=== PATIENT | male | born 2000 ===

== ENCOUNTER 2025-04-15 17:52 | Inpatient (IN) | payer OTHER ==
[~2025-04-15] VITALS: Ht 180.3 cm; Wt 76.1 kg
[2025-04-15 20:31] VITALS: BP 115/67
[2025-04-15 21:05] VITALS: BP 115/67
[2025-04-15] MEDS ORDERED: Ondansetron 4 MG SoluTab MM PRN (21:25)
[2025-04-15] MEDS ORDERED: Polyethylene Glycol 3350 17 gm PO PRN (21:30)
[2025-04-15] MEDS ORDERED: FLU VACC TS2025-26(6MOS UP)/PF 45 MCG/0.5 ML SYRINGE IM SCH (21:30)
[2025-04-15] MEDS ORDERED: Aluminum Hydroxide 320MG/5ML 473 ML PO PRN (21:35)
--- NOTE | 2025-04-15 22:33 | NUR ---
ADMISSION SUMMARY 24 YEAR OLD MALE PRESENTS WITH FAIR GROOMING FROM [facility] IN [place]. HE ARRIVED ON THE UNIT AT APPROXIMATELY 2025. DURING ADMISSION, PATIENT WAS CALM AND COOPERATIVE. HE WAS ABLE TO MAKE AND KEEP GOOD EYE CONTACT THROUGHOUT THE INTERVIEW. HE DOES NOT SEEM TO BE A GOOD HISTORIAN OR TO HAVE MUCH INSIGHT INTO HIS MENTAL ILLNESS. PER PATIENT, HE IS SUIDICAL BECAUSE HIS PARENTS DID NOT INVITE HIM TO THANKSGIVING. HIS PLAN WAS TO GO TO THE POLICE STATION AND ATTACK THEM WITH THE INTENT OF FORCING THEM TO KILL HIM. HE ALSO THOUGHT ABOUT BLOWING UP HIS PARENTS HOUSE. PER PATIENT, THE ED AT [facility] TOOK HIS PROPANE BOTTLE AWAY. PER ADMISSION PACKET, PATIENT HAS A HISTORY OF METHAMPHETAMINE USE AND ASPERGER SYNDROME. DIAGNOSIS ON THE PACKET WAS SI, MDD, UNSPECIFIED SCHIZOPHRENIA, AND PSYCHOTIC DISORDER. TWO NURSE SKIN CHECK WAS COMPLETED BY DIANA AYALA AND DIANA DUPREE. NO EVIDENCE OF LICE NOTED. HIS PROPERTY WAS COLLECTED AND SECURED BY [facility]. CLIENT WAS GIVEN OPPORTUNITY FOR SNACK PRIOR TO BEGINNING OF ADMISSION. HE REFUSED FOOD BUT RECEIVED WATER AND GATORAIDE. ALL PAPER CONSENTS WERE COMPLETED AND SIGNED. CONSENT TO TREAT WAS SCANNED INTO HIS CHART. INITIAL ADMISSION SAFETY SCREEN WAS COMPLETED. PATIENT BEGAN TO FALL ASLEEP DURING THE INTERVIEW, SO THE INTERVIEW WAS TERMINATED. WILL PASS ALONG TO MORNING SHIFT TO CONTINUE ADMISSION PROCESS. PATIENT WAS ORIENTED TO UNIT WELL PRN MEDICATION AVAILABILITY. HE ASKED ABOUT SHOWERING, AND HE WAS GIVEN A TOWEL AND WASH CLOTH. HE CONTINUES TO BE MONITORED EVERY 15 MINUTES FOR CARE AND SAFETY.
--- NOTE | 2025-04-16 05:04 | NUR ---
END OF SHIFT SUMMARY PATIENT HAS HAD NO ACUTE CHANGES NOTED SINCE ADMISSION. NO SIGNS OF DISTRESS NOTED. NO PRN MEDICATIONS WERE UTILIZED. SOME SIGNS OF PARANOIA WERE NOTICED, SUCH ASKING IF HIS NEW ROOMMATE WAS GOING TO KILL HIM. HE CONTINUES TO BE MONITORED EVERY 15 MINUTES FOR WELLNESS AND SAFETY.
[2025-04-16 08:21] VITALS: BP 109/67
[2025-04-16] MEDS ORDERED: Multivitamins 1 Tab PO SCH (09:00)
--- NOTE | 2025-04-16 17:23 | NUR ---
SHIFT SUMMARY PT A/O; REPORTS BOTH SI AND HI. PT STATES THAT HE ALWAYS HAS SUICIDAL THOUGHTS AND PLANS TO BY POLICE IF HE WERE TO BE RELEASED. PT ALSO STATED THAT HE WANTS TO KILL HIS WHOLE FAMILY BECAUSE THEY DID NOT INVITE HIM TO THANKSGIVING. PT DENIED AVTH, BUT MAY EXPERIENCE SOME PARANOID DELUSIONS. PT PARANOID ABOUT FILLING OUT MENU FOR MEALS. HE STAYED IN HIS ROOM FOR THE ENTIRETY OF THE SHIFT. PT STATES THAT HE FEELS CONFUSED TO WHERE HE IS AND IS UNSURE OF WHERE HE USUALLY LIVES. HIS AFFECT IS BLUNTED AND HIS MOOD IS DEPRESSED. HE IS MONITORED PER UNIT PROTOCOL FOR SAFETY AND WELLNESS.
[2025-04-16 19:38] VITALS: BP 119/67
--- NOTE | 2025-04-16 21:53 | NUR ---
MID-SHIFT SUMMARY 24 YEAR-OLD MALE PRESENTS WELL GROOMED. HE IS ALERT AND ORIENTED. HE SPEAKS IN A CLEAR VOICE AND IN AN APPROPRIATE VOLUME. HE IS ABLE TO MAKE AND KEEP LIMITED EYE CONTACT DURING CONVERSATIONS. AT THE TIME OF HIS ASSESSMENT, HE DESCRIBED HIS MOOD ANGRY. HE ALSO DENIED SI AND AVTH, BUT ENDORSED HI TOWARDS FAMILY AT THAT TIME. HE ATTENDED SNACK AND THEN RETURNED TO HIS BED. HE WAS COMPLIANT WITH CARE, MEDICATION ADMINISTRATION, AND COMPLETING ADMISSION PAPERWORK. HE DID NOT RECEIVE ANY PRN MEDICATIONS. HE CONTINUES TO BE MONITORED EVERY 15 MINUTES FOR WELLNESS AND SAFETY.
--- NOTE | 2025-04-17 06:08 | NUR ---
END OF SHIFT SUMMARY Upon assumption of care at 2200, pt is lying on his bed with eyes closed and appears to be asleep. Respirations regular and unlabored, no apparent distress. Pt remained in his room until end of shift. Staff continues to monitor q15m for safety and wellness.
--- NOTE | 2025-04-17 07:35 | NUR ---
Refused lab draw Pt refused lab draw this AM. This RN attempted to explain the importance of labs to pt and why it needs to be done in the morning. Pt continues to refuse at this time, but states he may be open to getting them done tomorrow morning.
--- NOTE | 2025-04-17 16:14 | NUR ---
SHIFT SUMMARY PT A/O X3 AND DENIES SI, HI, AVTH. PT STATES THAT HE IS TIRED TODAY AND HAS BEEN GUARDED/WITHDRAWN THIS SHIFT. HE HAS STAYED IN HIS ROOM FOR THE ENTIRETY OF THE SHIFT AND HAS ONLY ATTENDED MEALS. PT REFUSED LABS AND MULTIVITAMIN THIS AM. PT EDUCATED ON THE IMPORTANCE OF DOING FASTING LABS. PT STATED THAT HE MAY BE OPEN TO HAVING HIS LABS DRAWN TOMORROW INSTEAD. HIS AFFECT IS BLUNTED AND HYGIENE IS POOR. HE IS MONITORED Q15 PER UNIT PROTOCOL FOR SAFETY AND WELLNESS.
[2025-04-17 20:20] VITALS: BP 124/79
--- NOTE | 2025-04-18 05:00 | NUR ---
SHIFT SUMMARY: PATIENT IS A 24 YEAR OLD MALE ADMITTED FOR SUICIDAL IDEATION VOLUNTARILY ON 04/15/25. HE PRESENTED SOMEWHAT DISHEVELED, A AND O X4, AND SPEAKS IN A MODERATE TONE OF VOICE, WITH SOMEWHAT LIMITED EYE CONTACT. HE DESCRIBED HIS MOOD "SAD" EVIDENCED BY TEARFULNESS. HE WAS "UPSET AND FRUSTRATED" BECAUSE THE UNIT IS OUT OF FOOTWEAR AT THIS TIME. HE WAS ABLE TO BE REDIRECTED TO MORE POSITIVE ASPECTS OF HIS STAY, AND TALKED ABOUT HIS ROOM, THE FOOD AND "BEING WARM". HE DENIED SI, HI AND AVTH. HE WAS GIVEN EDUCATION REGARDING HIS EVENING MEDICATION. HE PARTICIPATED IN SNACK AND WRAP UP GROUP AT 1999, THEN WENT TO BED WHERE HE WAS NOTED TO BE RESTING QUIETLY WITH EYES CLOSED AND RESPIRATIONS CONFIRMED FOR THE REMAINDER OF THE SHIFT. CONTINUING TO MONITOR FOR SAFETY WITH Q15 MINUTE CHECKS.
--- NOTE | 2025-04-18 15:08 | NUR ---
Patient was in his bed at 1400. This nurse went to ask him to get up and attend group. He resisted but did get up. He walked into the hallway and stated "I don't have any fucking shoes, I'm gonna get fungus on my feet. I should not have to go if I don't have shoes". He proceeded to walk into the Dinning room where group was being held and hollered in a loud voice that "I want to go back to [facility] or senior care, I don't want to be here", disprupting the group. The MHA who was facilitating the group told him that we will not tolerated that behavior. He also stated that the staff here are not the people to send him back to senior care. He setteled with his head on the table and eyes closed the rest of group.
--- NOTE | 2025-04-18 16:48 | NUR ---
SHIFT SUMMARY PT A/O X3 AND DENIES SI, HI, AVTH THIS SHIFT. PT APPEARS FRUSTRATED AND GUARDED. HE DECLINES TO PARTICIPATE IN MOST ACTIVITIES AND SPENT MOST OF THE SHIFT IN BED. PT DECLINED MORNING LAB DRAWS. PT IS UPSET THAT THERE IS NO UNIT BASED SHOES AVAILABLE AND DECLINING TO PARTICIPATE. PT DID ATTEND ONE GROUP THIS AFTERNOON WITH A LOT OF ENCOURAGEMENT, BUT DID NOT PARTICIPATE. PT'S SPEECH CAN BE ABRASIVE AND AGGRESSIVE IN NATURE. PLEASE SEE PREVIOUS NOTES REGARDING PT'S COMMUNICATION WITH STAFF. PT ALSO BECAME VERBALLY AGGRESSIVE WITH ANOTHER PT WHEN THAT PT ASKED THAT HE REFRAIN FROM TALKING ABOUT JUDAISM IN THE GROUP ROOM. PLEASE SEE PREVIOUS NOTE ON THIS WELL. STAFF CONTINUES TO MONITOR PT Q15 FOR SAFETY AND WELLNESS.
--- NOTE | 2025-04-18 17:05 | NUR ---
This patient was in the group room having a discussion with a peer about yazdanism. Another patient asked them to stop talking about yazdanism. THis patient then postured toward his peer (puffing up, angling toward) asking him "Do I look like I have punk written on my forhead? You cant take away my 1st ammendment rights". Both patients seperated from each other, and each patient had a discussion with staff. This patient is in the group room watching a movie at this time.
--- NOTE | 2025-04-19 04:09 | NUR ---
SHIFT SUMMARY PATIENT RESTING QUIETLY IN BED, ANSWERING ASSESSMENT QUESTIONS WITH SHORT 1-2 WORD STATEMENTS. APPEARS IRRITATED DURING QUESTIONS. DENIES SI, HI, OR AVTH. REQUIRING ENCOURAGEMENT TO PARTICIPATE WITH SNACK. UP TO MED WINDOW FOR HS MED THEN DECIDED TO STOP AND GET SNACK BEFORE RETURNING TO BED. APPEARS TO BE SLEEPING WELL T/O NIGHT RESP EVEN AND UNLABORED. CONTINUE TO MONITOR Q15MIN NO PRN MEDICATIONS GIVEN T/O NIGHT
[2025-04-19 08:40] VITALS: BP 103/71
--- NOTE | 2025-04-19 12:30 | NUR ---
MID SHIFT SUMMARY PT WOKE EASILY FOR BREAKFAST PRESENTING ORIENTED AND ALERT. HE IMMEDIATLEY RETURNED TO BED AFTER BREAKFAST. WHEN ENTERING THE ROOM TO MEDICATE PT FOR MORNING MEDS, HE WAS UNDER THE COVERS AND REFUSED TO LET THIS RN SEE HIS FACE. HE REFUSED HIS MORNING VITAMIN AND IT WAS CHARTED SUCH. PT IS PARTICIPATING IN THE 2ND MORNING GROUP MEETING, NOT SURE IF HE PARTICIPATED IN THE FIRST GROUP. PT HAS CONTINUED TO RECIEVE Q15 MIN VISUAL SAFETY CHECKS THROUGHOUT THE FIRST HALF OF THE [facility], PT CARE FOR THIS RN FROM [phone].
--- NOTE | 2025-04-19 13:18 | NUR ---
ASSUMPTION OF CARE ASSUMED CARE OF PATIENT FROM [place] [id number]. HE IS CURRENTLY ATTENDING GROUP. HE HAS NOT RECEIVED ANY PRN MEDICATIONS PRIOR IN THE SHIFT.
--- NOTE | 2025-04-19 15:47 | NUR ---
END OF SHIFT SUMMARY SINCE THIS [place] STUDIES PROFESSOR ASSUMED CARE AT 1300, NO PRN MEDICATIONS WERE UTILIZED. PATIENT DOES NOT SEEM TO BE IN ANY ACUTE DISTRESS. THEY HAVE BEEN COMPLIANT WITH CARE AND ATTENDED MEALS AND GROUPS.
--- NOTE | 2025-04-20 00:14 | NUR ---
MID-SHIFT SUMMARY 24 YEAR-OLD MALE PRESENTS WELL GROOMED. HE IS ALERT AND ORIENTED. HE SPEAKS IN A CLEAR VOICE AND IN AN APPROPRIATE VOLUME. HE IS ABLE TO MAKE AND KEEP LIMITED EYE CONTACT DURING CONVERSATIONS. AT THE TIME OF HIS ASSESSMENT, HE DESCRIBED HIS MOOD CALM. HE ALSO DENIED SI, HI, AND AVTH. HE ATTENDED SNACK AND THEN RETURNED TO HIS BED. HE WAS COMPLIANT WITH CARE AND MEDICATION ADMINISTRATION. HE DID NOT RECEIVE ANY PRN MEDICATIONS. HE CONTINUES TO BE MONITORED EVERY 15 MINUTES FOR WELLNESS AND SAFETY.
--- NOTE | 2025-04-20 01:00 | NUR ---
Assumed care of patient at 0055. Patient currently sleeping with even respirations. Will continue monitoring every 15 minutes for safety and comfort per unit protocol.
--- NOTE | 2025-04-20 06:13 | NUR ---
pATIENT SLEPT THROUGH THE NIGHT FROM 2130 ON. NO CHANGES NOTED FROM ASSUMPTION OF CARE AT 0055. WILL CONTINUE CLOSE MONITORING EVERY 15 MINUTES FOR COMFORT AND SAFETY PER UNIT STANDARD
[2025-04-20 08:03] VITALS: BP 113/69
--- NOTE | 2025-04-20 17:14 | NUR ---
SHIFT SUMMARY PT DENIES SI/HI AT EVERY SAFETY CHECK THIS SHIFT. HE WAS OFTEN SPENDING TIME IN BED, OCASSIONALLY COMING OUT TO THE GROUP ROOM WHEN IT WAS OPEN. HE IS FLAT AND SPEAKS PRESSURED. HE ATTENDED GROUPS. HE WAS CONCERNED ABOUT REACHING OUT TO THE [facility] IF HE WAS ABLE TO GO BACK THERE. LONNIE THE D/C GOLF TOURNAMENT CONSULTANT IS AWARE OF THIS. HE REFUSED HIS VITAMIN IN THE AM. NO PRN MEDS WERE GIVEN. PT DENIES HAULLUCINATIONS.
--- NOTE | 2025-04-21 04:41 | NUR ---
SHIFT SUMMARY: PATIENT IS A 24 YEAR OLD MALE [facility] FOR SI. HE PRESENTED MODERATELY GROOMED, ALERT AND ORIENTED X4, SPEAKING IN CLIPPED SENTENCES, COOPERATIVE WITH CARES. HE LOOKS DOWN OFTENTIMES WHEN SPEAKING. HE DESCRIBED HIS MOOD "FINE, I HAD A PRETTY GOOD DAY." HE WANTED TO WEIGH HIMSELF, SO WAS TAKEN TO THE SCALE, AND NOTED HE HAD GAINED SEVERAL POUNDS, WHICH HE STATED, "IS GREAT. I'M GLAD I'M NOT USING METH ANYMORE." HE DENIED SUICIDAL IDEATION, THOUGHTS OF SELF HARMING AND A/V/T HALLUCINATIONS. HE PARTICIPATED IN SNACK AND WRAP UP GROUP, AND WAS COMPLIANT WITH EVENING MEDICAITON ADMINISTRATION. HE WENT TO BED AFTER TAKING HIS MEDICATIONS, AND WAS NOTED TO BE RESTING QUIETLY WITH EYES CLOSED AND RESPIRATIONS CONFIRMED FOR THE REMAINDER OF THE SHIFT. CONTINUING TO MONITOR FOR SAFETY WITH Q15 MINUTE CHECKS.
--- NOTE | 2025-04-21 17:23 | NUR ---
Shift Summary Pt A/O and cooperative with most care. He declined to get his blood drawn this AM and labs were cancelled. He denies SI, HI, AVTH. He participated in groups this shift and states that he would like to discharge soon. Pt states that he would like to discharge back to the senior living in [place] if he is able. Pt requests to have his clothes washed prior to discharge as well. Affect is constricted and he states that his mood is "good".
--- NOTE | 2025-04-21 21:37 | NUR ---
PRN MEDICATION: PATIENT REQUESTED AND WAS GIVEN TRAZODONE 50 MG PO FOR C/O INSOMNIA AT 2133. WILL MONITOR PATIENT FOR EFFECTIVENESS. CONTINUING TO DO SAFETY CHECKS Q15 MINUTES.
--- NOTE | 2025-04-22 04:35 | NUR ---
PATIENT IS A 24 YEAR OLD MALE AD[facility]ITTED TO [facility] ON 04/[facility]/25 FOR SUICIDAL IDEATION. HE PRESENTED WELL GROOMED, A AND O X4, SPOKE IN A MODERATE VOLUME WITH BLUNTED LANGUAGE. HE MADE APPROPRIATE EYE CONTACT. HE DESCRIBED HIS MOOD , "HAPPY, BECAUSE I'M GOING HOME ON SATURDAY". HE DENIED SI, HI AND AVTH. HE STATED, "I'M HAPPY THAT I GAINED WEIGHT AND AM GOING HOME. IF YOU SEE ME OUT ON THE STREETS, YOU CAN FEEL FREE TO SAY HELLO." HE PARTICIPATED IN SNACK AND WRAP UP GROUP AT 2030, AND WAS COMPLIANT WITH EVENING MEDICATION ADMINISTRATION. HE WAS GIVEN MEDICATION EDUCATION REGARDING HIS REMERON. HE REQUESTED AND WAS GIVEN PRN TRAZODONE FOR C/O INSOMNIA AT 2132, STATING, "I JUST CAN'T SLEEP TONIGHT FOR SOME REASON". HE WAS GIVEN MEDICATION EDUCATION REGARDING THE TRAZODONE. THE TRAZODONE WAS EFFECTIVE FOR SLEEP, AND HE REMAINED IN BED RESTING WITH EYES CLOSED AND RESPIRATIONS CONFIRMED FOR THE REST OF THE SHIFT. CONTINUING TO MONITOR FOR SAFETY WITH Q15 MINUTE CHECKS.
[2025-04-22] MEDS ORDERED: MIRT15 (12:38)
--- NOTE | 2025-04-22 17:56 | NUR ---
SHIFT SUMMARY PT WOKE EASILY PRIOR TO BREAKFAST THIS SHIFT AND STATED HE HAD A GREAT NIGHT OF SLEEP. HE IS ALERT AND ORIENTED WITH GOOD EYE CONTACT AND CLEAR SPEECH WITH NORMAL TONE, PRESENTABLE HYGIENE, HAS BEEN COOPERATIVE IN CARE AND COMPLIANT WITH MEDICAION. PT HAS PARTICIPATED IN MEALS/SNACKS/GROUPS. HE HAS DENIED SI/HI/AVH AND HAS SPOKE OF GOING HOME TOMMOROW WITH PLANNED DC. HE SPEAKS OF HARMING HIS FAMILY BUT THEN STATES "I'M JUST JOKING". PROVIDER NOTIFIED OF THIS AT MORNING TEAM MEETING. PT HAS CONTINUED TO RECEIVED Q15 MIN VISUAL SAFETY CHECKS THROUGHOUT THE SHIFT.
--- NOTE | 2025-04-22 20:26 | NUR ---
PRN MEDICATION ADMINISTRATION: PATIENT REQUESTED MELATONIN 3 MG AND TRAZODONE 50 MG, BOTH PRNS FOR INSOMNIA, AT THE SAME TIME FOR INSOMNIA SECONDARY TO "TOO MUCH EXCITEMENT AND ANXIETY ABOUT DISCHARGING". DR WAS ASKED IF THIS WAS ALL RIGHT X1 TONIGHT. DR GAVE PERMISSION AND PATIENT WAS GIVEN THE MEDICATION. CONTINUING TO MONITOR FOR EFFECTIVENESS AND FOR SAFETY WITH Q15 MINUTE CHECKS.
--- NOTE | 2025-04-23 05:00 | NUR ---
SHIFT SUMMARY: PATIENT IS A 24 YEAR OLD MALE [facility] FOR SI AND MDD. HE PRESENTED WELL GROOMED, A AND O X 4, SPOKE IN A MODERATE VOICE AND MADE APPROPRIATE EYE CONTACT. HE DESCRIBED HIS MOOD "EXCITED, BECAUSE I'M DISCHARGING TOMORROW". HE PARTICIPATED IN SNACK AND WRAP UP GROUP IN THE [place]INING AREA AT 1999, AND WAS COMPLIANT WITH EVENING MEDICATION ADMINISTRATION. HE WANTED TO TAKE MELATONIN AND TRAZODONE TOGETHER, "BECAUSE I'M REALLY ANXIOUS ABOUT SLEEP, I'M TOO EXCITED TO SLEEP". WAS ASKED, AND STATED THAT IT WAS OKAY TO GIVE THEM TOGETHER. PATIENT GIVEN PRNS 2009. HE THEN WENT TO HIS ROOM WHERE HE WAS NOTED TO BE IN BED RESTING WITH EYES CLOSED AND RESPIRATIONS CONFIRMED FOR THE REMAINDER OF THE SHIFT. THE MEDICATIONS WERE EFFECTIVE. CONTINUING TO MONITOR FOR SAFETY WITH Q15 MINUTE CHECKS.
--- NOTE | 2025-04-23 09:25 | NUR ---
IMPORTANT DISCHARGE INFORMATION PATIENT TO BE DISCHARGED TODAY. [facility] TO PICK HIM UP AROUND 2PM. THEIR PHONE NUMBER IS . HE WILL BE GOING TO [facility]. EMERGENCY PACK PROVIDED. ALL PARTIES VERBALIZE AN UNDERSTANDING. FOLLOW UP WITH CHELI BLUE WITH [facility] DEPARTMENT OF CORRECTIONS . FOLLOW UP WITH [facility] MENTAL HEALTH FOR CONTINUED SERVICES. PHARMACY: [facility] FAX RESOURCES: EMERGENCY BACK PACK WITH HAT, CLOVES, RAIN GEAR, EMERGENCY PLANKET FOOD AND WATER. JOB PROGRAMS AND OUT PATIENT TREATMENT.
--- NOTE | 2025-04-23 13:47 | NUR ---
DISCHARGE SUMMARY PT DC FROM [facility] AT 1330 PATIENT TRANSPORT BACK TO [facility]. SNACK PACK GIVEN, PT UNDERSTANDS D/C INSTRUCTIONS
== END 2025-04-23 13:30 | disposition home or self-care (01) | DRG 881 ==
LOC: BHU 17:52
PROVIDERS: ADMIT Psychiatry & Neurology Psychiatry
DX: F32.A Depression, unspecified (principal); R45.851 Suicidal ideations; F15.10 Other stimulant abuse, uncomplicated; Z23 Encounter for immunization; Z79.899 Other long term (current) drug therapy
CPT/HCPCS: A9270